=== PATIENT | male | born 1965 | race Caucasian/White ===

== ENCOUNTER 2018-11-14 20:11 | Emergency (ER) | payer BC ==
[2018-11-14 20:22] VITALS: BP 127/83; PULSE 99; TEMP 98.3; BMI 25.8
[2018-11-14] MEDS ORDERED: ONDANSETRON 4 MG/2 ML VIAL IVPB ONE (20:48)
[2018-11-14] MEDS ORDERED: SODIUM CHLORIDE 1,000 ML IV ONE ×2 (20:48→21:02)
--- NOTE | 2018-11-14 20:48 | PDOC ---
History of Present Illness - General History Source: Patient Exam Limitations: No Limitations - History of Present Illness Initial Comments: 11/14/18 21:04 The patient is a 53 year old male who presents to the ED, via EMS, with multiple episodes of vomiting since earlier today. Patient states he went skiing yesterday for the first time. He reports generalized abdominal pain and multiple episodes of non bilious non bloody vomiting that started earlier today. He states he had an episode of hyperventilation where his arms, legs, face, and lips contracted and he developed a pins and needles like sensation. Patient states this episode lasted 5 mintues before resolving. Denies fever or chills. Denies chest pain or cough. Denies diarrhea or hematochezia. Denies dysuria or change in urinary output. Denies any other symptoms. PAST MEDICAL HISTORY: no significant history PAST SURGICAL HISTORY: no significant history FAMILY HISTORY: no pertinent history SOCIAL HISTORY: Pt lives with family and is employed. MEDICATIONS: reviewed ALLERGIES: As per nursing notes General: No fevers or chills, no weakness, no weight loss HEENT: No change in vision. No sore throat,. No ear pain CardioVascular: No chest pain or shortness of breath Respiratory: + hyperventilation. No cough, or wheezing. Gastrointestinal: + abdominal pain, vomiting. no diarrhea or constipation, No rectal bleeding Genitourinary: No dysuria, hematuria, or frequency Musculoskeletal:+ muscle contraction and tingling. No joint or muscle pain or swelling Neurologic: No headache, vertigo, dizziness or loss of consciousness Psychiatric: nor depression Skin: No rashes or easy bruising Endocrine: no increased thirst or abnormal weight change Allergic: no skin or latex allergy All other systems reviewed and normal General: Well-nourished well-developed individual, no acute distress HEENT: Throat: Normal, tonsils normal, no erythema or exudate Neck: Supple, no meningeal signs, no lymphadenopathy Eyes::Pupils equal reactive and round, extraocular motion intact Chest: Nontender to palpation Cardiac: S1-S2 normal, regular rate and rhythm, no murmurs rubs or gallops Respiratory: Lungs clear to auscultation bilateral Abdomen: Soft, nondistended, normal bowel sounds, nontender to palpation diffusely Extremities: Warm, dry, no cyanosis, clubbing, or edema Skin: No rashes Neuro: Alert and oriented x3, nonfocal exam, grossly intact, normal gait Psych: Normal mood and affect <Meir Luna - Last Filed: 11/14/18 21:04> - General History Source: Patient Exam Limitations: No Limitations - History of Present Illness Initial Comments: 11/14/18 21:39 A portion of this note was documented by scribe services under my direction. I have reviewed the details of the note, within reason, and agree with the documentation with the following case summary and management plan written by me. Patient treated in the ED. Nursing notes are reviewed and incorporated into the medical decision-making. Vital signs reviewed. Assessment plan: This is a 53-year-old male who comes in complaining of nausea and vomiting. Patient had an episode of some hyperventilation with periorbital numbness and carpal pedal spasm after multiple episodes of vomiting which prompted his to call EMS. By the time patient got here he was doing much better and his symptoms had resolved with the exception of some mild nausea. On my exam patient had no tenderness on palpation otherwise appeared well and was being hydrated. Patient had some extreme exertion yesterday [place] the [place] so a CPK was sent to rule out rhabdo the CPK was normal and patient was discharged after a by mouth challenge <Amy Schultz I - Last Filed: 11/14/18 21:41> - General Chief Complaint: Nausea/Vomiting Stated Complaint: NAUSEA/VOMITING Time Seen by Provider: 11/14/18 20:16 Past History <Meir Luna - Last Filed: 11/14/18 21:04> - Past Medical History COPD: No Other medical history: B12 AND D DEFICIENCY - Suicide/Smoking/Psychosocial Hx Smoking History: Never smoked <Amy Schultz I - Last Filed: 11/14/18 21:41> - Past Medical History Allergies/Adverse Reactions: Allergies Allergy/AdvReac Type Severity Reaction Status Date / Time No Known Allergies Allergy Unverified 11/14/18 20:17 Home Medications: Ambulatory Orders NK [No Known Home Medication] 11/14/18 *Physical Exam - Vital Signs Last Vital Signs Temp Pulse Resp BP Pulse Ox 98.3 F 99 H 18 127/83 99 11/14/18 20:18 11/14/18 20:18 12/28/18 20:18 11/14/18 20:18 11/14/18 20:18 <Meir Luna - Last Filed: 11/14/18 21:04> - Vital Signs Last Vital Signs Temp Pulse Resp BP Pulse Ox 98.3 F 99 H 18 127/83 99 11/14/18 20:18 11/14/18 20:18 11/14/18 20:18 11/14/18 20:18 11/14/18 20:18 <Amy Schultz I - Last Filed: 11/14/18 21:41> Moderate Sedation - Procedure Monitoring Vital Signs: Procedure Monitoring Vital Signs Temperature 98.3 F 11/14/18 20:18 Pulse Rate 99 H 11/14/18 20:18 Respiratory Rate 18 11/14/18 20:18 Blood Pressure 127/83 11/14/18 20:18 O2 Sat by Pulse Oximetry (%) 99 11/14/18 20:18 <Meir Luna - Last Filed: 11/14/18 21:04> - Procedure Monitoring Vital Signs: Procedure Monitoring Vital Signs Temperature 98.3 F 11/14/18 20:18 Pulse Rate 99 H 11/14/18 20:18 Respiratory Rate 18 11/14/18 20:18 Blood Pressure 127/83 11/14/18 20:18 O2 Sat by Pulse Oximetry (%) 99 11/14/18 20:18 <Amy Schultz I - Last Filed: 11/14/18 21:41> ED Treatment Course - Medications Given in the ED: ED Medications Discontinued Medications Generic Name Dose Route Start Last Admin Trade Name Angelita PRN Reason Stop Dose Admin Ondansetron HCl 8 mg 11/14/18 20:48 11/14/18 20:54 Zofran Injection IVPB 11/14/18 20:49 8 mg ONCE ONE Administration <Meir Luna - Last Filed: 11/14/18 21:04> *DC/Admit/Observation/Transfer - Attestations Scribe Attestion: 11/14/18 21:04 Documentation prepared by Meir Luna, acting as medical assisting instructor for Amy Schultz MD <Meir Luna - Last Filed: 11/14/18 21:04> - Discharge Dispostion Decision to Admit order: No <Amy Schultz I - Last Filed: 11/14/18 21:41> Diagnosis at time of Disposition: Nausea & vomiting Qualifiers: Vomiting type: unspecified Vomiting Intractability: non-intractable Qualified Code(s): R11.2 - Nausea with vomiting, unspecified - Discharge Dispostion Disposition: HOME Condition at time of disposition: Stable - Patient Instructions Printed Discharge Instructions: DI for Nausea -- Adult, DI for Vomiting -- Adult Additional Instructions: Clear liquids only for the next 6 hours.. After that if you have had no further vomiting you may have bananas, rice, applesauce, or toast. If no further vomiting for another 8 hours you may have regular food. If you vomit again then nothing to eat or drink for 2 hours. then start back with the clear liquids. Return to the emergency department immediately with ANY new, persistent or worsening symptoms. You MUST call and follow up with your doctor tomorrow if not better. Please make sure your doctor reviews the results of your emergency evaluation . Please make sure your doctor reviews the results of your emergency evaluation. Thank you for coming to the Emergency Department today for your care. It was a pleasure to see you today. Please note that your evaluation is INCOMPLETE until you follow-up with your doctor.
[2018-11-14] MEDS ORDERED: ONDANSETRON 4 MG/2 ML VIAL ONE (20:51)
[2018-11-14 21:22] LABS: PH,URINE 5.5 (4.5-8); URINE APPEARANCE Clear; URINE BILIRUBIN Negative (NEGATIVE); URINE COLOR Yellow; URINE GLUCOSE (UA) Negative (NEGATIVE); URINE KETONE Trace (NEGATIVE); URINE LEUK ESTERASE Negative (NEGATIVE); URINE NITRITE Negative (NEGATIVE); URINE PROTEIN Negative (NEGATIVE); URINE UROBILINOGEN 0.2 (0.2-1.0)
== END 2018-11-14 21:46 | disposition home or self-care (01) ==
LOC: FER 20:11
PROC: 3E033GC Introduction of Other Therapeutic Substance into Peripheral Vein, Percutaneous Approach (ICD-10-PCS; principal; 2018-11-14)
PROC: 3E0337Z Introduction of Electrolytic and Water Balance Substance into Peripheral Vein, Percutaneous Approach (ICD-10-PCS; 2018-11-14)
DX: R11.2 Nausea with vomiting, unspecified (principal)
CPT/HCPCS: 36415; 81003; 82550; 82553; 99282-25; J7030